=== PATIENT | male | born 1955 | race Caucasian/White ===

== ENCOUNTER 2023-10-03 11:44 | Inpatient (IN) ==
--- NOTE | 2023-10-03 12:40 | EKG ---
Test Reason : A FIB Blood Pressure : */* mmHG Vent. Rate : 121 BPM Atrial Rate : * BPM P-R Int : * ms QRS Dur : 108 ms QT Int : 346 ms P-R-T Axes : * 28 14 degrees QTc Int : 491 ms Atrial fibrillation with rapid ventricular response Nonspecific ST and T wave abnormality Abnormal ECG No previous ECGs available Confirmed by Satnam Fernando MD ([id number] on 10/04/2023 8:56:50 AM Referred By: Confirmed By: Satnam Fernando MD
[2023-10-03] MEDS: LR 1,000 ML IV 1,000 ML IV ONE ×2 (13:12→14:46)
[2023-10-03] MEDS: ANCEF VIAL 1 GRAM ONE (13:19)
[2023-10-03] MEDS: NS 100 ML IV 100 ML ONE (13:19)
[2023-10-03] MEDS: VANCOMYCIN HCL ONE (13:22)
[2023-10-03] MEDS: TOBRAMYCIN SULFATE ONE (13:23)
--- NOTE | 2023-10-03 13:34 | NOTE.SOAP ---
Soap Note Note for Day of Date of Exam: 10/03/23 Subjective Data Subjective Data: 68 year old male with idiopathic neuropathy and no knowledge of diabetes was seen and evaluated bedsdie this afternoon. He was sent to the hospital by Dr. Rivera due to right great toe infection. He states that he use to have a wound on that toe and saw Dr. Morales in [place]. He is currently not seeing a optical coating technician. This weekend his removed his toenail at home and the toe became infected. Patient was septic in the office and due to symptoms and clinical findings he has been admitted for IV antibiotics and possible surgery Objective Data Objective Data: Engorged right hallux with a wound that probes to subcutaneous tissue on the tuft. Necrosis of the tuft of the hallux. Nonpalpable pulses due to peripheral edema. Gross epicritic and protective sensation is diminished. Contracted IPJ of the hallux Assessment Assessment: 68 year old male with cellulitis with possible abscess of right hallux Plan Plan: Patient was seen bedside, diagnosis and treatment were discused with patient in great detail. I prepared him that we would have to remove the distal aspect of his great toe due to the severity of the infection and the quality of the soft tissue. We ordered a VAS to evaluate blood flow. Patient has been NPO and will remain NPO for the procedure. Plan to take patietn to surgery right now for an open amputation of the hallux and we will continue to monitor it for a delayed primary closure.
[2023-10-03] MEDS: KETAMINE 50 MG/5 ML-NACL SYRNG ONE (13:39)
[2023-10-03] MEDS: VERSED ONE (13:39)
[2023-10-03] MEDS: XYLOCAINE 1% and EPINEPHRINE 1:100,000 ONE (13:39)
[2023-10-03] MEDS: DIPRIVAN VIAL 20 ML ONE (13:39)
[2023-10-03 13:45] LABS: BASOPHILS # (AUTO) 0.1 X10^3/uL (0.0-0.1); EOSINOPHILS # (AUTO) 0.2 x10^3/uL (0.0-0.2); MEAN PLATELET VOLUME 7.3 fL (7.4-11.0); WHITE BLOOD COUNT 6.8 X10^3/uL (3.6-10.0)
[2023-10-03 13:49] LABS: BASOPHILS % (AUTO) 0.7 % (0.2-1.0); EOSINOPHILS % (AUTO) 3.1 % (0.9-2.9); HEMOGLOBIN 13.4 g/dL (13.5-18.0); LYMPHOCYTES # (AUTO) 1.6 X10^3/uL (1.3-2.9); LYMPHOCYTES % (AUTO) 23.6 % (21.0-51.0); MEAN CORPUSCULAR HEMOGLOBIN 28.8 pg (27.0-34.0); MEAN CORPUSCULAR HGB CONC 33.5 g/dL (33.0-35.0); MONOCYTES # (AUTO) 0.6 x10^3/uL (0.3-0.8); MONOCYTES % (AUTO) 8.7 % (0.0-13.0); NEUTROPHILS # (AUTO) 4.3 x10^3/uL (2.2-4.8); NEUTROPHILS % (AUTO) 63.9 % (42.0-75.0); PLATELET COUNT 304 X10^3/uL (150.0-450.0); RED BLOOD COUNT 4.65 X10^6/uL (4.7-6.0)
[2023-10-03] MEDS: BETADINE SOLN ONE (13:49)
[2023-10-03 13:53] LABS: HEMOGLOBIN A1C 5.5 %
[2023-10-03 13:57] VITALS: BMI 29.7
[2023-10-03 13:58] LABS: ALANINE AMINOTRANSFERASE 26 Units/L (12-78); ALKALINE PHOSPHATASE 117 Units/L (46-116); ASPARTATE AMINO TRANSFERASE 24 Units/L (15-37); BLOOD UREA NITROGEN 31 mg/dL (7-18); CALCIUM 9.1 mg/dL (8.5-10.1); CARBON DIOXIDE 27.3 mmol/L (21-32); CHLORIDE 102 mmol/L (98-107); COR CA(FOR HYPOALB) 9.9 mg/dL (8.5-10.1); CREATININE 2.97 mg/dL (0.70-1.30); GLUCOSE 88 mg/dL (65-99); SODIUM 137 mmol/L (136-145); TOTAL PROTEIN 7.9 g/dL (6.4-8.2); eGFR NON BLACK RACES 22 (>60)
[2023-10-03 13:59] LABS: POTASSIUM 4.8 mmol/L (3.5-5.1)
[2023-10-03] MEDS ORDERED: NORCO 5/325 MG TAB PO PRN (14:01)
--- NOTE | 2023-10-03 14:07 | DR.OPNOTE ---
OP NOTE Pre-Op Diagnosis: Gangrene, right hallux Post-Op Diagnosis: Same Procedure Date Date Of Procedure: 10/03/23 Procedure: Open amputation of right hallux Type of Anesthesia: Local Findings: See dictation Specimen/Pathology: Cultures and toe EBL: 10cc Drains/Tubes Placed: None Hardware: None Cultures: x2 right hallux Complications:: None Needle/Sponge Count:: counted Disposition/Condition: Pt. tolerated procedure without difficulty. Extubated in the OR and taken to PACU in stable condition.
[2023-10-03] MEDS: MERREM VIAL 1 G in NS 100 ML IV 100 ML IV SCH ×2 (14:10→14:45)
[2023-10-03 14:11] LABS: TOTAL PSA 13.53 ng/mL (0.13-4.0)
[2023-10-03] MEDS: PHARMACY CONSULT - VANCOMYCIN XX SCH (14:11)
[2023-10-03 14:39] LABS: INR 1.15 (0.8-1.3)
[2023-10-03 14:42] LABS: MAGNESIUM 2.1 mg/dL (2.0-2.9); PHOSPHORUS 4.5 mg/dL (2.6-4.7)
[2023-10-03] MEDS: LR 1,000 ML IV 1,000 ML IV SCH (14:45)
[2023-10-03] MEDS: VANCOMYCIN IV *PREMIX 1.5 G/300 ML BAG 1.5 G/300 ML PIGGYBACK IV SCH (16:47)
[2023-10-04 06:01] LABS: ALANINE AMINOTRANSFERASE 19 Units/L (12-78); ALBUMIN 2.5 g/dL (3.4-5.0); ALKALINE PHOSPHATASE 105 Units/L (46-116); ASPARTATE AMINO TRANSFERASE 21 Units/L (15-37); BLOOD UREA NITROGEN 32 mg/dL (7-18); CALCIUM 8.8 mg/dL (8.5-10.1); CARBON DIOXIDE 25.9 mmol/L (21-32); CHLORIDE 105 mmol/L (98-107); CREATININE 2.57 mg/dL (0.70-1.30); GLUCOSE 81 mg/dL (65-99); SODIUM 139 mmol/L (136-145); TOTAL PROTEIN 6.9 g/dL (6.4-8.2); eGFR NON BLACK RACES 27 (>60)
--- NOTE | 2023-10-04 06:18 | NOTE.SOAP ---
Soap Note Note for Day of Date of Exam: 10/04/23 Subjective Data Subjective Data: Patient is post op day s/p partial hallux amputation of right foot. He is doing well this am, no complaints and resting comfortably. No nausea, vomiting, fever, chills, SOB or calf pain Objective Data Objective Data: Two stitches coapted nicely, center of the incision is granular with no active bleeding or purulence. Exposed proximal phalanx. Mild erythema of the remaining hallux. No changes with neurovascular status Assessment Assessment: S/P Right partial hallux amputation (DOS: 10/03/2023) - Gangrene and cellulitis, right hallux - PVD - Idiopathic neuropathy Plan Plan: Patient was seen bedside this am. Diagnosis and treatmetn were discussed again in great detail. Patient understands this is a staged procedure. We'll leave the incision site opened for a few days in order to drain the infection. Surgical cultures and pathology pending. IV abx on schedule. Dressing change performed with gauze packing, zbigniew and an JOANN wrap. VAS was performed but results are not listed. Pending if vascular is needed. Plan from podiatry standpoint is to take patient back to surgery on Saturday for a repeat washout with delayed primary closure. Will follow
[2023-10-04 06:55] LABS: BASOPHILS # (AUTO) 0.1 X10^3/uL (0.0-0.1); BASOPHILS % (AUTO) 1.1 % (0.2-1.0); EOSINOPHILS # (AUTO) 0.2 x10^3/uL (0.0-0.2); EOSINOPHILS % (AUTO) 3.7 % (0.9-2.9); HEMATOCRIT 38.7 % (42.0-54.0); HEMOGLOBIN 12.8 g/dL (13.5-18.0); LYMPHOCYTES # (AUTO) 1.1 X10^3/uL (1.3-2.9); LYMPHOCYTES % (AUTO) 20.3 % (21.0-51.0); MEAN CORPUSCULAR HEMOGLOBIN 28.4 pg (27.0-34.0); MEAN CORPUSCULAR HGB CONC 32.9 g/dL (33.0-35.0); MEAN CORPUSCULAR VOLUME 86.3 fL (80.0-100.0); MEAN PLATELET VOLUME 7.1 fL (7.4-11.0); MONOCYTES # (AUTO) 0.5 x10^3/uL (0.3-0.8); MONOCYTES % (AUTO) 8.4 % (0.0-13.0); NEUTROPHILS # (AUTO) 3.7 x10^3/uL (2.2-4.8); NEUTROPHILS % (AUTO) 66.5 % (42.0-75.0); PLATELET COUNT 259 X10^3/uL (150.0-450.0); RED BLOOD COUNT 4.49 X10^6/uL (4.7-6.0); RED CELL DISTRIBUTION WIDTH 14.7 % (11.6-16.5); WHITE BLOOD COUNT 5.6 X10^3/uL (3.6-10.0)
[2023-10-04] MEDS: LOVENOX INJ 40 MG SYR SC SCH (09:19)
[2023-10-04] MEDS: TOPROL XL PO SCH (10:28)
[2023-10-04] MEDS: LR 1,000 ML IV 1,000 ML IV ONE (10:30)
[2023-10-04] MEDS: FLOMAX PO SCH (20:50)
[2023-10-05 04:54] LABS: BASOPHILS % (AUTO) 0.8 % (0.2-1.0); EOSINOPHILS # (AUTO) 0.2 x10^3/uL (0.0-0.2); EOSINOPHILS % (AUTO) 4.8 % (0.9-2.9); HEMOGLOBIN 12.5 g/dL (13.5-18.0); LYMPHOCYTES # (AUTO) 1.4 X10^3/uL (1.3-2.9); LYMPHOCYTES % (AUTO) 27.7 % (21.0-51.0); MEAN CORPUSCULAR HEMOGLOBIN 28.2 pg (27.0-34.0); MEAN CORPUSCULAR HGB CONC 32.8 g/dL (33.0-35.0); MEAN CORPUSCULAR VOLUME 86.1 fL (80.0-100.0); MEAN PLATELET VOLUME 7.1 fL (7.4-11.0); MONOCYTES # (AUTO) 0.5 x10^3/uL (0.3-0.8); MONOCYTES % (AUTO) 10.1 % (0.0-13.0); NEUTROPHILS # (AUTO) 2.8 x10^3/uL (2.2-4.8); NEUTROPHILS % (AUTO) 56.6 % (42.0-75.0); PLATELET COUNT 238 X10^3/uL (150.0-450.0); RED BLOOD COUNT 4.42 X10^6/uL (4.7-6.0); RED CELL DISTRIBUTION WIDTH 14.9 % (11.6-16.5); WHITE BLOOD COUNT 4.9 X10^3/uL (3.6-10.0)
[2023-10-05 05:03] LABS: ALANINE AMINOTRANSFERASE 18 Units/L (12-78); ALBUMIN 2.4 g/dL (3.4-5.0); ALKALINE PHOSPHATASE 104 Units/L (46-116); ASPARTATE AMINO TRANSFERASE 19 Units/L (15-37); BLOOD UREA NITROGEN 28 mg/dL (7-18); CALCIUM 8.4 mg/dL (8.5-10.1); CARBON DIOXIDE 25.5 mmol/L (21-32); CHLORIDE 106 mmol/L (98-107); COR CA(FOR HYPOALB) 9.7 mg/dL (8.5-10.1); GLUCOSE 91 mg/dL (65-99); POTASSIUM 4.5 mmol/L (3.5-5.1); SODIUM 138 mmol/L (136-145); TOTAL PROTEIN 6.5 g/dL (6.4-8.2); eGFR NON BLACK RACES 32 (>60)
--- NOTE | 2023-10-05 09:11 | NOTE.SOAP ---
Soap Note Note for Day of Date of Exam: 10/05/23 Subjective Data Subjective Data: Patient is post op day 2 s/p partial hallux amputation of right foot. He is doing well this am, no complaints and resting comfortably. No nausea, vomiting, fever, chills, SOB or calf pain Objective Data Objective Data: No changes this am; Two stitches coapted nicely, center of the incision is granular with no active bleeding or purulence. Exposed proximal phalanx. Mild erythema of the remaining hallux. No changes with neurovascular status Assessment Assessment: S/P Right partial hallux amputation (DOS: 10/03/2023) - Gangrene and cellulitis, right hallux - PVD - Idiopathic neuropathy Plan Plan: Patient was seen bedside this am. Diagnosis and treatment were discussed again in great detail. Patient understands this is a staged procedure. We'll leave the incision site opened and have him scheduled for saturday for a delayed primary closure. Original wound culture grew staph; i told him he will be going home on PO abx. Surgical cultures and pathology pending. IV abx on schedule. Dressing change performed with gauze packing, zbigniew and an JOANN wrap. VAS was performed but results are not listed; a read request was made. Pending if vascular is needed. Plan from podiatry standpoint is to take patient back to surgery on Saturday for a repeat washout with delayed primary closure at 830 am. Will follow Procedure: Repeat washout with delayed primary closure, right foot Time: 30 minutes Anesthesia: MAC with local
[2023-10-05] MEDS: NS 1,000 ML IV 1,000 ML IV SCH (09:40)
[2023-10-05] MEDS: LR 1,000 ML IV 1,000 ML IV SCH (09:47)
[2023-10-06 05:29] LABS: BASOPHILS % (AUTO) 0.8 % (0.2-1.0); EOSINOPHILS # (AUTO) 0.3 x10^3/uL (0.0-0.2); EOSINOPHILS % (AUTO) 5.2 % (0.9-2.9); HEMATOCRIT 38.1 % (42.0-54.0); HEMOGLOBIN 12.4 g/dL (13.5-18.0); LYMPHOCYTES # (AUTO) 1.5 X10^3/uL (1.3-2.9); LYMPHOCYTES % (AUTO) 30.1 % (21.0-51.0); MEAN CORPUSCULAR HEMOGLOBIN 28.2 pg (27.0-34.0); MEAN CORPUSCULAR HGB CONC 32.7 g/dL (33.0-35.0); MEAN CORPUSCULAR VOLUME 86.4 fL (80.0-100.0); MEAN PLATELET VOLUME 7.4 fL (7.4-11.0); MONOCYTES # (AUTO) 0.5 x10^3/uL (0.3-0.8); MONOCYTES % (AUTO) 9.3 % (0.0-13.0); NEUTROPHILS # (AUTO) 2.7 x10^3/uL (2.2-4.8); NEUTROPHILS % (AUTO) 54.6 % (42.0-75.0); PLATELET COUNT 238 X10^3/uL (150.0-450.0); RED BLOOD COUNT 4.41 X10^6/uL (4.7-6.0); RED CELL DISTRIBUTION WIDTH 14.7 % (11.6-16.5)
[2023-10-06 05:56] LABS: ALANINE AMINOTRANSFERASE 22 Units/L (12-78); ALBUMIN 2.4 g/dL (3.4-5.0); ALKALINE PHOSPHATASE 103 Units/L (46-116); ASPARTATE AMINO TRANSFERASE 21 Units/L (15-37); BLOOD UREA NITROGEN 28 mg/dL (7-18); CALCIUM 8.4 mg/dL (8.5-10.1); CHLORIDE 107 mmol/L (98-107); COR CA(FOR HYPOALB) 9.7 mg/dL (8.5-10.1); CREATININE 2.07 mg/dL (0.70-1.30); GLUCOSE 87 mg/dL (65-99); POTASSIUM 4.6 mmol/L (3.5-5.1); SODIUM 141 mmol/L (136-145); TOTAL PROTEIN 6.4 g/dL (6.4-8.2); eGFR NON BLACK RACES 34 (>60)
[2023-10-06] MEDS: PHARMACY COMMENT IV NR (08:55)
[2023-10-07 05:31] LABS: BASOPHILS # (AUTO) 0.1 X10^3/uL (0.0-0.1); BASOPHILS % (AUTO) 0.9 % (0.2-1.0); EOSINOPHILS # (AUTO) 0.3 x10^3/uL (0.0-0.2); EOSINOPHILS % (AUTO) 4.5 % (0.9-2.9); HEMOGLOBIN 12.9 g/dL (13.5-18.0); LYMPHOCYTES # (AUTO) 1.7 X10^3/uL (1.3-2.9); LYMPHOCYTES % (AUTO) 30.2 % (21.0-51.0); MEAN CORPUSCULAR HEMOGLOBIN 28.6 pg (27.0-34.0); MEAN CORPUSCULAR HGB CONC 33.1 g/dL (33.0-35.0); MEAN CORPUSCULAR VOLUME 86.3 fL (80.0-100.0); MEAN PLATELET VOLUME 7.6 fL (7.4-11.0); MONOCYTES # (AUTO) 0.4 x10^3/uL (0.3-0.8); MONOCYTES % (AUTO) 7.3 % (0.0-13.0); NEUTROPHILS # (AUTO) 3.3 x10^3/uL (2.2-4.8); NEUTROPHILS % (AUTO) 57.1 % (42.0-75.0); PLATELET COUNT 240 X10^3/uL (150.0-450.0); RED BLOOD COUNT 4.52 X10^6/uL (4.7-6.0); RED CELL DISTRIBUTION WIDTH 15.1 % (11.6-16.5); WHITE BLOOD COUNT 5.7 X10^3/uL (3.6-10.0)
[2023-10-07 05:45] LABS: ALANINE AMINOTRANSFERASE 26 Units/L (12-78); ALBUMIN 2.6 g/dL (3.4-5.0); ALKALINE PHOSPHATASE 100 Units/L (46-116); ASPARTATE AMINO TRANSFERASE 28 Units/L (15-37); BLOOD UREA NITROGEN 30 mg/dL (7-18); CALCIUM 8.6 mg/dL (8.5-10.1); CARBON DIOXIDE 23.8 mmol/L (21-32); CHLORIDE 106 mmol/L (98-107); COR CA(FOR HYPOALB) 9.7 mg/dL (8.5-10.1); CREATININE 1.95 mg/dL (0.70-1.30); GLUCOSE 87 mg/dL (65-99); POTASSIUM 4.6 mmol/L (3.5-5.1); SODIUM 140 mmol/L (136-145); TOTAL PROTEIN 6.8 g/dL (6.4-8.2); eGFR NON BLACK RACES 37 (>60)
[2023-10-07] MEDS: NS 1,000 ML IV 1,000 ML ONE (08:28)
[2023-10-07] MEDS: MARCAINE 0.25% INJ ONE (08:55)
[2023-10-07] MEDS: BETADINE SOLN ONE (08:55)
[2023-10-07] MEDS ORDERED: KETAMINE HCL ONE (08:55)
[2023-10-07] MEDS: VERSED ONE (08:57)
[2023-10-07] MEDS: FENTANYL VIAL INJ 100 mcg ONE (08:58)
[2023-10-07] MEDS: DIPRIVAN VIAL 20 ML ONE (09:01)
[2023-10-07 12:10] VITALS: TEMP 98.5
[2023-10-07 15:32] VITALS: BP 138/99; PULSE 89; RESP 20; O2SAT 97
--- NOTE | 2023-10-07 16:21 | VAS ---
EXAM:LOWER EXT ARTERIAL-UNILATERALHISTORY:PVD, RIGHT FOOT ABCESS, RIGHT LEG PAIN; rt foot abcess, s/p foot surgery,PVDCOMPARISON:NoneTECHNIQUE:Mult iple rust scale and color flow Doppler images of the right lower extremity arterial system were obtained.FINDINGS:Predominantly biphasic waveforms throughout the visualized right lower extremity arteries.RIGHT:OUTSIDE SALES ASSOCIATE: 79SFA Proximal: 67SFA mid: 65SFA distal: 89Popliteal: 86PTA: 76Dorsalis Pedis: 30Velocities are in cm/secIMPRESSION:No elevated velocities in the right lower extremity to suggest hemodynamically significant stenosis.THIS IS AN ELECTRONICALLY VERIFIED FINAL REPORT10/07/2023 4:18 PM - Electronically signed by Rip Suresh MD
== END 2023-10-07 15:30 | disposition home or self-care (01) | DRG 580 ==
LOC: ICU → OBSVTOIN 11:50
PROVIDERS: ADMIT Obstetrics & Gynecology Obstetrics; ATTEND Obstetrics & Gynecology Obstetrics
DX: G60.8 Other hereditary and idiopathic neuropathies; B95.62 Methicillin resistant Staphylococcus aureus infection as the cause of diseases classified elsewhere; N18.9 Chronic kidney disease, unspecified; I96 Gangrene, not elsewhere classified; R79.82 Elevated C-reactive protein (CRP); E86.0 Dehydration; N17.8 Other acute kidney failure; R97.20 Elevated prostate specific antigen [PSA]; M20.31 Hallux varus (acquired), right foot; L03.115 Cellulitis of right lower limb; I48.91 Unspecified atrial fibrillation; I95.89 Other hypotension

== ENCOUNTER 2025-03-11 14:59 | Inpatient (IN) ==
[2025-03-11] MEDS: VANCOMYCIN IV *PREMIX 1 G/200 ML BAG 1 G/200 ML PIGGYBACK IV ONE ×2 (16:31→19:21)
[2025-03-11] MEDS: LR 1,000 ML IV 1,000 ML IV SCH (16:31)
[2025-03-11] MEDS: PHARMACY CONSULT - VANCOMYCIN XX SCH (16:31)
[2025-03-11 16:36] LABS: CREATININE 2.43 mg/dL (0.70-1.30); eGFR NON BLACK RACES 28 (>60)
[2025-03-11 16:38] LABS: MEAN PLATELET VOLUME 7.3 fL (7.4-11.0); RED CELL DISTRIBUTION WIDTH 16.8 % (11.6-16.5)
[2025-03-11 17:01] LABS: BAND NEUTROPHILS % 10 % (0-10)
[2025-03-11 17:02] LABS: METAMYELOCYTES % 2; MYELOCYTES % 2
[2025-03-11 17:04] LABS: BLOOD/HEMOGLOBIN,URINE 1+ (NEGATIVE); LEUKOCYTE ESTERASE ,URINE 1+ (NEGATIVE); NITRITES,URINE POSITIVE (NEGATIVE)
[2025-03-11 17:13] LABS: PLATELET MORPHOLOGY COMMENT NORMAL (NORMAL)
[2025-03-11 17:29] LABS: APPEARANCE,URINE HAZY (CLEAR); SQUAMOUS EPITHELIAL CELL,UR RARE /HPF (NEGATIVE)
[2025-03-11 19:24] VITALS: BMI 40.3
[2025-03-12 05:47] LABS: COR CA(FOR HYPOALB) 9.1 mg/dL (8.5-10.1); CREATININE 2.34 mg/dL (0.70-1.30); eGFR NON BLACK RACES 30 (>60)
[2025-03-12 05:53] LABS: MEAN PLATELET VOLUME 6.9 fL (7.4-11.0); RED CELL DISTRIBUTION WIDTH 16.8 % (11.6-16.5)
[2025-03-12 06:50] LABS: BASOPHILS % (MANUAL) 0 % (0-1); PLATELET MORPHOLOGY COMMENT NORMAL (NORMAL)
[2025-03-12] MEDS ORDERED: PHARMACY CONSULT - MEROPENEM XX SCH (07:30)
[2025-03-12] MEDS: ULORIC PO SCH (08:48)
[2025-03-12] MEDS: FLOMAX PO SCH (08:48)
[2025-03-12] MEDS: MERREM VIAL 1 G in NS 100 ML IV 100 ML IV SCH (08:48)
[2025-03-12] MEDS: ASPIRIN EC 81 MG PO SCH (08:48)
[2025-03-12] MEDS: TOPROL XL PO SCH (08:48)
[2025-03-12] MEDS: ALDACTONE TAB 25 MG PO SCH (08:48)
[2025-03-12] MEDS: VANCOMYCIN IV *PREMIX 1.5 G/300 ML BAG 1.5 G/300 ML PIGGYBACK IV SCH (10:30)
[2025-03-12] MEDS: NS 250 ML IV 25 ML IV PRN (21:14)
[2025-03-13 06:50] LABS: MEAN PLATELET VOLUME 7.0 fL (7.4-11.0); RED CELL DISTRIBUTION WIDTH 17.4 % (11.6-16.5)
[2025-03-13 06:53] LABS: COR CA(FOR HYPOALB) 9.2 mg/dL (8.5-10.1); CREATININE 2.43 mg/dL (0.70-1.30); eGFR NON BLACK RACES 28 (>60)
[2025-03-13 08:42] LABS: PLATELET MORPHOLOGY COMMENT NORMAL (NORMAL)
[2025-03-13] MEDS ORDERED: VANCOMYCIN IV *PREMIX 2 G/400 ML BAG 2 G/400 ML PIGGYBACK IV SCH (17:00)
[2025-03-14 06:14] LABS: MEAN PLATELET VOLUME 7.0 fL (7.4-11.0); RED CELL DISTRIBUTION WIDTH 16.7 % (11.6-16.5)
[2025-03-14 06:18] LABS: COR CA(FOR HYPOALB) 9.2 mg/dL (8.5-10.1); CREATININE 2.29 mg/dL (0.70-1.30); eGFR NON BLACK RACES 30 (>60)
[2025-03-14 07:12] LABS: BASOPHILS % (MANUAL) 1 % (0-1)
[2025-03-14 07:13] LABS: PLATELET MORPHOLOGY COMMENT NORMAL (NORMAL)
[2025-03-14] MEDS: PHARMACY COMMENT IV ONE (07:36)
[2025-03-14 09:32] LABS: CREATININE 2.3 mg/dL (0.70-1.30)
[2025-03-15 05:17] LABS: COR CA(FOR HYPOALB) 9.0 mg/dL (8.5-10.1); CREATININE 2.04 mg/dL (0.70-1.30); eGFR NON BLACK RACES 35 (>60)
[2025-03-15 06:36] LABS: MEAN PLATELET VOLUME 6.9 fL (7.4-11.0); RED CELL DISTRIBUTION WIDTH 16.7 % (11.6-16.5)
[2025-03-15 07:15] LABS: PLATELET MORPHOLOGY COMMENT NORMAL (NORMAL)
[2025-03-15] MEDS ORDERED: PHARMACY COMMENT IV SCH (16:30)
[2025-03-16 06:04] LABS: MEAN PLATELET VOLUME 6.9 fL (7.4-11.0); RED CELL DISTRIBUTION WIDTH 16.9 % (11.6-16.5)
[2025-03-16 06:07] LABS: COR CA(FOR HYPOALB) 8.9 mg/dL (8.5-10.1); CREATININE 1.89 mg/dL (0.70-1.30); eGFR NON BLACK RACES 38 (>60)
[2025-03-16 06:38] LABS: PLATELET MORPHOLOGY COMMENT NORMAL (NORMAL)
[2025-03-17 06:37] LABS: MEAN PLATELET VOLUME 7.0 fL (7.4-11.0); RED CELL DISTRIBUTION WIDTH 17.0 % (11.6-16.5)
[2025-03-17 06:56] LABS: COR CA(FOR HYPOALB) 9.3 mg/dL (8.5-10.1); CREATININE 2.04 mg/dL (0.70-1.30); eGFR NON BLACK RACES 35 (>60)
[2025-03-17 07:17] LABS: PLATELET MORPHOLOGY COMMENT NORMAL (NORMAL)
[2025-03-17 12:53] LABS: CREATININE 2.1 mg/dL (0.70-1.30)
[2025-03-18 04:18] VITALS: O2SAT 98
[2025-03-18 05:08] LABS: COR CA(FOR HYPOALB) 8.9 mg/dL (8.5-10.1); CREATININE 1.96 mg/dL (0.70-1.30); eGFR NON BLACK RACES 36 (>60)
[2025-03-18 05:13] LABS: MEAN PLATELET VOLUME 7.4 fL (7.4-11.0); RED CELL DISTRIBUTION WIDTH 17.2 % (11.6-16.5)
[2025-03-18 05:15] LABS: PLATELET MORPHOLOGY COMMENT NORMAL (NORMAL)
[2025-03-18 08:26] VITALS: BP 122/67; PULSE 63; RESP 18; TEMP 97.5
--- NOTE | 2025-03-18 08:44 | PCM.DCPLAN ---
DISCHARGE SUMMARY Admission Date Date of Admission: 03/11/25 Discharge Date Discharge Date: 03/18/25 Admission Diagnoses (1) Sepsis: Status: Acute (2) Enterococcus UTI: Status: Acute (3) Ureteral stent present: Status: Acute (4) Pancytopenia: Status: Acute Discharge Medications Discharge Medications: Home Medication List febuxostat 40 mg tablet 40 mg PO DAILY 03/11/25 [History] Prescriptions: Hospital Course Vital Signs: Vital Signs Temperature 97.7 F Temperature 98.0 F Pulse Rate [Left Brachial] 68 Pulse Rate [Left Brachial] 77 Respiratory Rate 19 Respiratory Rate 19 Blood Pressure [Left Arm] 120/63 Blood Pressure [Left Arm] 117/61 O2 Sat by Pulse Oximetry 98 O2 Sat by Pulse Oximetry 99 Latest Lab Results: Laboratory Last Values WBC 2.0 X10^3/uL (3.6-10.0) L 03/18/25 04:43 RBC 3.65 X10^6/uL (4.7-6.0) L 03/18/25 04:43 Hgb 11.3 g/dL (13.5-18.0) L 03/18/25 04:43 Hct 32.4 % (42.0-54.0) L 03/18/25 04:43 MCV 88.8 fL (80.0-100.0) 03/18/25 04:43 MCH 30.9 pg (27.0-34.0) 03/18/25 04:43 MCHC 34.8 g/dL (33.0-35.0) 03/18/25 04:43 RDW 17.2 % (11.6-16.5) H 03/18/25 04:43 Plt Count 154 X10^3/uL (150.0-450.0) 03/18/25 04:43 Plt Count Comment Adequate (ADEQUATE) 03/18/25 04:43 MPV 7.4 fL (7.4-11.0) 03/18/25 04:43 Neut % (Auto) 4.7 % (42.0-75.0) L 03/18/25 04:43 Lymph % (Auto) 67.1 % (21.0-51.0) H 03/18/25 04:43 [place] % (Auto) 14.8 % (0.0-13.0) H 03/18/25 04:43 Eos % (Auto) 11.0 % (0.9-2.9) H 03/18/25 04:43 Baso % (Auto) 2.4 % (0.2-1.0) H 03/18/25 04:43 Neut # (Auto) 0.1 x10^3/uL (2.2-4.8) L 03/18/25 04:43 Lymph # (Auto) 1.3 X10^3/uL (1.3-2.9) 03/18/25 04:43 [place] # (Auto) 0.3 x10^3/uL (0.3-0.8) 03/18/25 04:43 Eos # (Auto) 0.2 x10^3/uL (0.0-0.2) 03/18/25 04:43 Baso # (Auto) 0.0 X10^3/uL (0.0-0.1) 03/18/25 04:43 Absolute Nucleated RBC 2.5 /100WBC 03/18/25 04:43 Total Counted 100 03/18/25 04:43 Neutrophils % (Manual) 4 % (39-76) L 03/18/25 04:43 Band Neutrophils % 10 % (0-10) 03/11/25 16:13 Lymphocytes % (Manual) 77 % (13-43) H 03/18/25 04:43 Monocytes % (Manual) 6 % (4-9) 03/18/25 04:43 Eosinophils % (Manual) 13 % (0-6) H 03/18/25 04:43 Basophils % (Manual) 1 % (0-1) 03/14/25 05:27 Metamyelocytes % 2 03/11/25 16:13 Myelocytes % 2 03/11/25 16:13 Nucleated RBCs 1 03/13/25 05:49 Blast Cells (-1) 03/11/25 16:13 Plt Morphology Comment Normal (NORMAL) 03/18/25 04:43 RBC Morphology Abnormal (NORMAL) 03/18/25 04:43 Anisocytosis Slight A 03/18/25 04:43 Sodium 140 mmol/L (136-145) 03/18/25 04:43 Corrected Sodium TNP 03/18/25 04:43 Potassium 4.9 mmol/L (3.5-5.1) 03/18/25 04:43 Chloride 108 mmol/L (98-107) H 03/18/25 04:43 Carbon Dioxide 27.0 mmol/L (21-32) 03/18/25 04:43 BUN 23 mg/dL (7-18) H 03/18/25 04:43 Creatinine 1.96 mg/dL (0.70-1.30) H 03/18/25 04:43 Est GFR (MDRD) Af Amer 44 (>60) L 03/18/25 04:43 Est GFR (MDRD) Non-Af 36 (>60) L 03/18/25 04:43 Glucose 89 mg/dL (65-99) 03/18/25 04:43 Calcium 8.1 mg/dL (8.5-10.1) L 03/18/25 04:43 Corrected Calcium 8.9 mg/dL (8.5-10.1) 03/18/25 04:43 Total Bilirubin 1.00 mg/dL (0.2-1.0) 03/18/25 04:43 AST 19 Units/L (15-37) 03/18/25 04:43 ALT 22 Units/L (12-78) 03/18/25 04:43 Alkaline Phosphatase 110 Units/L (46-116) 03/18/25 04:43 Total Protein 6.5 g/dL (6.4-8.2) 03/18/25 04:43 Albumin 3.0 g/dL (3.4-5.0) L 03/18/25 04:43 Globulin 3.5 g/dL (2.5-4.5) 03/18/25 04:43 Albumin/Globulin Ratio 0.9 Ratio (1.1-2.1) L 03/18/25 04:43 Specimen Type Clean catch urine 03/11/25 16:00 Urine Color Dark yellow (YELLOW) 03/11/25 16:00 Urine Appearance Hazy (CLEAR) 03/11/25 16:00 Urine pH 6.0 (5.0 - 8.0) 03/11/25 16:00 Ur Specific [place] 1.015 (1.000-1.030) 03/11/25 16:00 Urine Protein 2+ (NEGATIVE) 03/11/25 16:00 Urine Glucose (UA) Negative (NEGATIVE) 03/11/25 16:00 Urine Ketones Negative (NEGATIVE) 03/11/25 16:00 Urine Blood 1+ (NEGATIVE) 03/11/25 16:00 Urine Nitrite Positive (NEGATIVE) 03/11/25 16: Urine Bilirubin Negative (NEGATIVE) 03/11/25 16: Urine Urobilinogen Normal (NORMAL) 03/11/25 16:00 Ur Leukocyte Esterase 1+ (NEGATIVE) 03/11/25 16:00 Urine RBC 0-2 /HPF (0-3) 03/11/25 16: Urine WBC 10-20 /HPF (0-5) A 03/11/25 16:00 Ur Squamous Epith Cells Rare /HPF (NEGATIVE) 03/11/25: Amorphous Sediment 1+ /HPF (NEGATIVE) 03/11/25 16: Urine Bacteria Trace /HPF (NEGATIVE) 03/11/25 16: Ur Culture Indicated? Yes/culture set up 03/11/25: Vancomycin Trough 17.5 ug/mL (15-20) 03/17/25 08:27 Hospital Course: Patient admitted with Enterococcus UTI and sepsis. Started on IV antibiotics with culture pending. Does have a stent that was thought to be a source of infection. Urology was consulted and plans to exchange the stent next week. Patient has improved, urine is clearing, and vitals are stable. He will be discharged on linezolid p.o. with plans for the stent exchange next week and a repeat CBC on Saturday. Concern for Macrobid-induced myelosuppression versus MDS. PE: Well-developed, well-nourished, obese male in no acute distress. Head NCAT, hearing grossly normal. Heart regular rate and rhythm, lungs are clear. Speech is unlabored and strong. Belly is soft, protuberant, with bowel sounds present. Able to move all extremities well. Mood and affect are appropriate.
== END 2025-03-18 10:25 | disposition home or self-care (01) | DRG 690 ==
LOC: MED/SURG
PROVIDERS: ADMIT Obstetrics & Gynecology Obstetrics; ATTEND Obstetrics & Gynecology Obstetrics
DX: N39.0 Urinary tract infection, site not specified; Z16.12 Extended spectrum beta lactamase (ESBL) resistance; D61.818 Other pancytopenia; R94.4 Abnormal results of kidney function studies; Z16.29 Resistance to other single specified antibiotic; Z96.0 Presence of urogenital implants; E83.51 Hypocalcemia; E80.6 Other disorders of bilirubin metabolism; B95.2 Enterococcus as the cause of diseases classified elsewhere; Z59.89 Other problems related to housing and economic circumstances; Z16.23 Resistance to quinolones and fluoroquinolones